=== PATIENT | male | born 1960 | race Caucasian/White ===

== ENCOUNTER 2017-03-23 10:13 | Emergency (ER) | payer OTHER ==
[~2017-03-23] VITALS: Ht 170.2 cm; Wt 84.5 kg
--- NOTE | 2017-03-23 10:18 | ED.REPORT ---
HPI-Neurologic Deficit Date of Service March 23, 2017 ED Provider: Dr. Cole 56 y/o male with a hx of non-insulin dependent diabetes , hyperlipidemia and HTN presents to the ED due to right side facial droop, slurred speech and stumbling, onset this morning. As per the pt's , the pt's "right eye was [facility] shut and when he smiled his right side didn't come as far as his left". She also observed the pt stumbling and mumbling. The pt also reported "seeing orange/yellow spots everywhere" to his this morning. She reports these sx lasted for approximately six hours. The pt states he feels fine and didn't notice anything different in his demeanor. Nursing Notes Stated Complaint: STROKE SYMPTOMS Chief Complaint: Neuro Symptoms/ Deficits Nursing Notes Reviewed: Yes Allergies: Coded Allergies: No Known Allergies (Unverified , 03/23/17) Scheduled Aspirin (Aspirin) 325 Mg Tablet 325 MG PO DAILY General Time Seen by Provider: 10:25 Chief Complaint Slurred speech Hx Obtained From: Patient, Spouse Arrived By: Walk-in Sudden in Onset?: Yes Onset Occurred: 1 - 4 hours ago Symptom Duration: 5 - 8 hours Severity: Current: No pain currently Severity: Maximum: No pain Recent Healthcare: No recent doctor visit Similar Sx Previous: No Risk Factors NIH Stroke Scale Level of Consciousness: Alert and responsive (0) Ask Month & Age: Both questions right (0) Open/Close Eyes/Hand Director Of Business Continuity: Performs both tasks (0) Horizontal EO Movements: None (0) Visual Martinez: No visual loss (0) Right Arm Motor Drift (10s): No drift 10 sec (0) Left Arm Motor Drift (10s): No drift 10 sec (0) Right Leg Motor Drift (5s): No drift 5 sec (0) Left Leg Motor Drift (5s): No drift 5 sec (0) Limb Ataxia FNF/Heel-Ricketts: No ataxia (0) Sensation (Arms/Legs/Face): No sensory loss (0) Language Aphasia: No aphasia, normal (0) Dysarthria: No dysarthria, normal (0) Extinction/Inattention: No exctinct/inattent (0) NIHSS Score: 0 Time NIHSS Performed: 10:15 Date NIHSS Performed: March 23, 2017 Past Medical History Past Medical History Reports: Diabetes mellitus, Hyperlipidemia, Hypertension Past Surgical History none reported Smoking History Current Every Day Smoker Social History Alcohol Use: "Social" Drug Use: Denies drug use Ambulatory Status Independent Review of Systems Reports: right side facial droop Neurologic: Reports: Problem walking, Slurred speech, Vision change Complete sys rev & neg: except as marked. Physical Exam Initial Vital Signs Vital Signs (First) Date Time Temp Pulse Resp B/P Pulse Ox O2 Delivery O2 Flow Rate FiO2 03/23/17 10:23 36.1 55 20 148/91 94 Room Air Initial VS: Reviewed Neck: Supple, Non-tender, Full range of motion Abdomen / GI: Soft, Non-tender, No guarding, No rebound, No distention Extremities: Vascular intact, Neuro intact, No swelling, No tenderness Skin: Warm, Dry, No cyanosis General/Constitutional: Awake, Alert, No acute distress, Cooperative Head / Eyes: Atraumatic, Normocephalic, PERRL, EOMI Respiratory / Chest: Atraumatic, Breath sounds NL, Breath sounds = bilat, No respiratory distress, No rales, No rhonchi, No wheezing Cardiovascular: Regular rhythm, Heart sounds NL, No gallop, No murmurs, No rubs Heart Rate / Rhythm: Positive: Bradycardia Neurologic: Oriented X3, Speech NL, No motor deficits, No sensory deficits, CN II - XII intact Upper Extremity / MS: Atraumatic, Full range of motion, Neurologic intact, Vascular intact Lower Extremity / Pelvis / MS: Atraumatic, Full range of motion, Neurologic intact, Vascular intact Interpretation & Diagnostics PROCEDURE: MRI STROKE PROTOCOL ([id number]) IMPRESSION: BRAIN MRI: 1. No evidence of infarct or other acute intracranial abnormality. 2. Mild chronic white matter small vessel ischemic changes and cerebral volume loss. BRAIN MR ANGIOGRAM: 1. No high-grade stenosis or occlusion of the central intracranial arteries. 2. There is persistent circulation on the left with the left posterior cerebral artery supplied by a posterior communicating artery. NECK MR ANGIOGRAM: 1. No high-grade stenosis or occlusion of the head and neck arteries. The carotid bulbs are widely patent. The estimate of stenosis included in the report of the imaging study was calculated using the NASCET method Dictated by: Zhou Shook M.D. on 03/23/2017 at 13:42 Approved by: Zhou Shook M.D. on 03/23/2017 at 13:55 Lab Results Interpretation Result Diagram: 03/23/17 1035 03/23/17 1035 Test 03/23/17 10:35 03/23/17 11:33 White Blood Count 5.2th/mm3 (3.8-10.1) Red Blood Count 5.13mil/mm3 (4.40-5.80) Hemoglobin 15.4g/dL (13.8-17.2) Hematocrit 44.7% (41.0-50.0) Mean Corpuscular Volume 87.1fL (81-100) Mean Corpuscular Hemoglobin 30.0pg (27.0-35.0) Mean Corpuscular Hemoglobin Concent 34.5% (32.0-37.0) Red Cell Distribution Width 12.7% (12.3-15.4) Platelet Count 219bil/L (150-400) Neutrophils (%) (Auto) 53.7% (40-74) Lymphocytes (%) (Auto) 32.7% (14-46) Monocytes (%) (Auto) 10.5% (4-12) Eosinophils (%) (Auto) 2.3% (0-5) Basophils (%) (Auto) 0.6% (0-3) Sodium Level 140mEq/L (134-144) Potassium Level 4.3mEq/L (3.5-5.2) Chloride Level 102mEq/L (97-108) Carbon Dioxide Level 24mmol/L (18-29) Blood Urea Nitrogen 14mg/dL (6-24) Creatinine 0.88mg/dL (0.76-1.27) Estimat Glomerular Filtration Rate 95mL/min (>59) Glucose Level 113mg/dL (60-99) Calcium Level 9.5mg/dL (8.5-10.1) Total Bilirubin 0.4mg/dL (0.0-1.2) Aspartate Amino Transf (AST/SGOT) 21U/L (0-50) Alanine Aminotransferase (ALT/SGPT) 29U/L (0-44) Alkaline Phosphatase 67U/L (25-150) Total Protein 7.2g/dL (6.4-8.4) Albumin 4.3g/dL (3.4-5.0) Alcohols < 10mg/dL (0-10) Urine Opiates Screen Negative Urine Methadone Screen Negative Urine Barbiturates Screen Negative Urine Amphetamines Screen Positive Urine Benzodiazepines Screen Positive Urine Cocaine Metabolite Screen Negative Urine Cannabinoids Screen Negative Urine dipstick: + BZO - BAR - HERLINDA - THC - MET - OPI - MTD - TCA - OXY - MDMA - PCP - AMP ECG Interpretation ECG Interpretation: Sinus bradycardia. Rate 53. No previous EKG for comparison Time: 10:25 Interpreted by: ED physician X-Ray Chest Interpretation Chest Xray Interpretation: IMPRESSION: Negative chest. No acute cardiopulmonary process is suspected. Dictated by: Jacques Garcia M.D. on 03/23/2017 at 10:02 Approved by: Jacques Garcia M.D. on 03/23/2017 at 10:03 View: Portable, 1 view Interpretation / Wet Read by: Interpret - Radiologist CT Head Interpretation IMPRESSION: 1. No acute intracranial abnormality. 2. Mild chronic white matter small vessel ischemic changes. Dictated by: Zhou Shook M.D. on 03/23/2017 at 11:02 Approved by: Zhou Shook M.D. on 03/23/2017 at 11:05 Study: Head CT no contrast Interpretation / Wet Read by: Interpret - Radiologist Re-Eval/Medical Decision Med Decision/Clinical Course Patient presents after having symptoms which may have been a TIA no he presents a full 24 hours after the symptoms had resolved. Symptoms have not recurred his NIH is 0. His workup in the ER is largely unremarkable. He was recommended to have a hospital admission and observation for full stroke workup. He refused this. In place of admission we did perform the stroke protocol MRI which is unremarkable. Strongly recommended patient take full dose aspirin daily. Strongly recommended the patient follow closely with his PCP. Explicit instructions and return precautions given. Source of Hx: Old records Re-Evaluation/Progress #1: Time of Eval: 11:36 Re-Evaluation/Progress Note: Rechecked pt. He reports feeling significantly better. Re-Evaluation/Progress #2: Time of Eval: 13:59 Re-Evaluation/Progress Note: Rechecked pt. Discussed lab, imaging results and diagnosis. Informed the pt of the plan to discharge. Pt understands and agrees with plan. F/U instructions and RTER warning given. All questions addressed. Counseled Regarding: Diagnosis, Lab results, Need for follow-up, When/why to return to ED Discharge & Departure Impression: Primary Impression: TIA (transient ischemic attack) Disposition: ADMITTED TO HOSPITAL Discharge Condition All VS Reviewed: Yes Additional Instructions: Your MRI was normal. Your symptoms may have been a TIA. Begin taking 325 mg of aspirin daily. Call your regular doctor today for close follow-up. Return to the ER immediately if you develop slurred speech, numbness or weakness going down one of your body or any other concerns for stroke. Referrals: Yuriy Allen MD (PCP) Scribe Attestation Portions of this note were transcribed by Valerio Amin. I, , personally performed the history, physical exam and medical decision-making;I reviewed and confirmed the accuracy of the information in the transcribed note. Signed by Derek Evans. 03/23/17 1534 copies to: Yuriy Allen MD, Timothy S DO March 23, 2017 10:18 Valerio Amin March 23, 2017 10:32
[2017-03-23 10:23] VITALS: BP 148/91; PULSE 55; RESP 20; O2SAT 94
[2017-03-23] MEDS ORDERED: 0.9% Sodium Chloride 1,000 ML IV ONE (10:33)
[2017-03-23 10:42] LABS: BASOPHILS % (AUTO) 0.6 % (0-3); EOSINOPHILS % (AUTO) 2.3 % (0-5); MONOCYTES % (AUTO) 10.5 % (4-12); Mean Corpuscular Volume 87.1 fL (81-100); NEUTROPHILS % (AUTO) 53.7 % (40-74); Platelet Count 219 bil/L (150-400)
--- NOTE | 2017-03-23 11:05 | DRSVH ---
PROCEDURE: X-RAY CHEST ONE VIEW, PORTABLE ([id number]) INDICATIONS: bradycardia, slurred speech TECHNIQUE: One view of the chest was acquired. COMPARISON: [facility], , CHEST 2VW, 09/19/2007, 11:23. FINDINGS: Surgical changes and devices: Postoperative changes of the lower cervical spine are incidentally note d. Lungs and pleura: No pleural effusions or pneumothorax. Lungs are clear. Mediastinum: Mediastinal contours appear normal. Heart size is normal. There is aortic atheroscler osis. Bones and chest wall: No suspicious bony lesions. Overlying soft tissues appear unremarkable. IMPRESSION: Negative chest. No acute cardiopulmonary process is suspected. Dictated by: Jacques Garcia M.D. on 03/23/2017 at 10:02 Approved by: Jacques Garcia M.D. on 03/23/2017 at 10:03
--- NOTE | 2017-03-23 11:07 | DRSVH ---
PROCEDURE: CT BRAIN WITHOUT CONTRAST ([id number]) INDICATIONS: Stroke. Right-sided weakness and slurred speech, now resolved. TECHNIQUE: Noncontrast 4.5 mm thick angled axial sections acquired from the foramen magnum to the vertex, with c oronal reformats. COMPARISON: None. FINDINGS: Image quality: Excellent. CSF spaces: Basal cisterns are patent. No extra-axial fluid collections. The ventricles are symmet andrew in size and shape. Brain: No intracranial hemorrhage, mass, or mass effect. There are a few subcortical, periventricul ar and deep white matter hypodensities consistent with mild chronic small vessel ischemic changes. T he mccall-white matter junction appears preserved. Skull and face: Calvarium and visualized facial bones are intact, without suspicious lesions. Sinuses: Visualized sinuses demonstrate mild mucosal thickening within the left maxillary sinus. Ma stoid air cells are clear. IMPRESSION: 1. No acute intracranial abnormality. 2. Mild chronic white matter small vessel ischemic changes. Dictated by: Zhou Shook M.D. on 03/23/2017 at 11:02 Approved by: Zhou Shook M.D. on 03/23/2017 at 11:05
[2017-03-23 11:20] VITALS: BP 145/97; PULSE 54; RESP 16; O2SAT 96
--- NOTE | 2017-03-23 13:56 | DRSVH ---
PROCEDURE: MRI STROKE PROTOCOL ([id number]) Pre- and post-contrast brain MRI, non-contrast brain MR angiogram, pre- and postcontrast neck MR perry ogram INDICATIONS: 56 year-old male with facial droop, slurreed speech, and stumbling. TECHNIQUE: Brain: Noncontrast axial T1 spin echo, axial T2 fast spin echo, sagittal and axial FLAIR, coronal T2 fast spin echo, axial gradient echo, axial diffusion and ADC through the brain. After the administr ation of contrast, axial 3D VIBE of the cranial vasculature and brain. Brain MRA: Non-contrast 3-D time of flight MR angiogram, with multiple suvupex-stfoybaqq-jbxgimwrmy (MIP) reformats performed. Neck MRA: Axial and sagittal TruFISP through the neck. Coronal dynamic MR angiogram during administ ration of contrast in the arterial and venous phases, with 3-dimenstional aabbbig-gatcyrusr-cwipahfoy n (MIP) reformats constructed from subtraction images. COMPARISON: [facility], CT, CT BRAIN WO CON, 03/23/2017, 10:52. FINDINGS: Image quality: There is mild motion artifact. BRAIN: CSF spaces: Ventricles are symmetric in size. There is mild cerebral volume loss with prominence of the ventricles and sulci. Basal cisterns are patent. No extra-axial fluid collections. Brain: Diffusion weighted images demonstrate no acute infarcts. No intracranial hemorrhage, mass, or mass effect. There are scattered bilateral subcortical and periventricular foci of white matter T2 hyperintensity consistent with mild chronic small vessel ischemic changes. Quinteros-white matter interfa ce is preserved. Brainstem appears normal. Normal intravascular flow voids are present. No abnorma l intracranial enhancement. Skull and face: Calvarial marrow signal is normal. Orbits appear normal. Sinuses: There is mild mucosal thickening within the left maxillary and bilateral ethmoid sinuses. T he mastoid air cells are clear. BRAIN MR ANGIOGRAM: Anterior circulation: Intracranial internal carotid arteries are normal in size and enhancement. Th e flow within the paired anterior cerebral arteries is normal and symmetric. The flow within the mid dle cerebral arteries is normal and symmetric. The anterior communicating artery is seen. No high-g rade stenoses, occlusions, or aneurysms. Posterior circulation: The visualized portions of the vertebral arteries appear patent and join to f orm a patent basilar artery. The left posterior cerebral artery is supplied by a posterior communica ting artery consistent with persistent circulation. A right posterior communicating artery is also present. The posterior cerebral arteries appear patent bilaterally. No high-grade stenoses, oc clusions, or aneurysms. NECK MR ANGIOGRAM: Carotids: Great vessels demonstrate a conventional anatomy as they arise from the aortic arch. The origins of the common carotid arteries appear patent. The calibers and courses of both common caroti d arteries are normal. The bifurcation regions appear normal bilaterally. The carotid bulbs are wid mohsen patent. The internal carotid arteries demonstrate normal course and caliber. Posterior circulation: The origins of the vertebral arteries appear patent. More superior portions of both vertebral arteries demonstrate normal course and caliber, and join to form a normal appearing basilar artery. Miscellaneous: Subclavian arteries appear patent. Pre-contrast images through the neck demonstrate magnetic susceptibly artifact in the cervical spine related to postsurgical changes. IMPRESSION: BRAIN MRI: 1. No evidence of infarct or other acute intracranial abnormality. 2. Mild chronic white matter small vessel ischemic changes and cerebral volume loss. BRAIN MR ANGIOGRAM: 1. No high-grade stenosis or occlusion of the central intracranial arteries. 2. There is persistent circulation on the left with the left posterior cerebral artery supplie d by a posterior communicating artery. NECK MR ANGIOGRAM: 1. No high-grade stenosis or occlusion of the head and neck arteries. The carotid bulbs are widely patent. The estimate of stenosis included in the report of the imaging study was calculated using the NASCET method Dictated by: Zhou Shook M.D. on 03/23/2017 at 13:42 Approved by: Zhou Shook M.D. on 03/23/2017 at 13:55
[2017-03-23] MEDS ORDERED: ASPI325T32 PO (14:04)
[2017-03-23 14:24] VITALS: BP 140/85; PULSE 58; RESP 18; O2SAT 97
== END 2017-03-23 14:25 | disposition home or self-care (01) ==
LOC: SED 10:13
DX: G45.9 Transient cerebral ischemic attack, unspecified (principal); E11.9 Type 2 diabetes mellitus without complications; E78.5 Hyperlipidemia, unspecified; I10 Essential (primary) hypertension; F17.200 Nicotine dependence, unspecified, uncomplicated; Z79.82 Long term (current) use of aspirin
CPT/HCPCS: 36415; 70450; 70549; 70553; 71010; 80053; 81002; 82948; 85025; 93005; 96360; 99285; A9585; G0480; J7030